=== PATIENT | female | born 1980 | race African-American/Black ===

== ENCOUNTER 2020-04-04 05:36 | Emergency (ER) | payer OTHER ==
[~2020-04-04] VITALS: Ht 171.4 cm; Wt 69.4 kg
[2020-04-04 05:40] VITALS: BP 127/82
== END 2020-04-04 06:36 | disposition home or self-care (01) ==
LOC: ED 06:23
DX: B34.9 Viral infection, unspecified (principal); R11.10 Vomiting, unspecified
CPT/HCPCS: 99283